=== PATIENT | female | born 1945 | race Caucasian/White ===

== ENCOUNTER 2022-01-07 17:12 | Emergency (ER) | payer MEDICARE ==
[2022-01-07] MEDS ORDERED: Tetracaine 0.5% PF 4 ML BOT ONE (17:43)
[2022-01-07] MEDS ORDERED: Fluorescein Opthalmic Strip ONE (17:43)
[2022-01-07] MEDS ORDERED: Acetaminophen 500 MG TAB ONE (18:40)
== END 2022-01-07 19:14 | disposition home or self-care (01) ==
LOC: CSHERS 17:12
DX: S05.01XA Injury of conjunctiva and corneal abrasion without foreign body, right eye, initial encounter (principal); Y08.89XA Assault by other specified means, initial encounter
CPT/HCPCS: 70450